=== PATIENT | female | born 2000 | race Caucasian/White ===

== ENCOUNTER 2022-03-17 08:55 | Emergency (ER) | payer OTHER, SELFPAY ==
[2022-03-17 09:02] VITALS: BP 131/79; PULSE 82; RESP 20; TEMP 36.6; O2SAT 100
--- NOTE | 2022-03-17 09:49 | ED.SKABFB ---
HPI - Skin/Abscess/Foreign Bdy General Chief complaint: Skin/Abscess/Foreign Body Stated complaint: Warm and Itchy rash on breast Time Seen by Provider: 03/17/22 09:15 Source: patient, RN notes reviewed and old records reviewed Mode of arrival: ambulatory Limitations: no limitations History of Present Illness HPI narrative: 22 year old female presents to [facility] with complaints of pain, warmth and pain to her left breast for 2 weeks. Patient reports history of breast cysts in past. Patient just stopped continuous control 2 weeks ago states that she did home test which was negative. Patient states that her nipple has been crusty and she did have one incidence of drainage from her left nipple. Patient reports pain to outer region of left breast with feelings of warmth to the tissue. No palpable masses noted. MD complaint: other (left breast pain) Onset (ago): week(s) (2) Severity scale (1-10): 7 Treatments prior to arrival: other (Ibuprofen) Related Data Home Medications Medication Instructions Recorded Confirmed ubrogepant 50 mg tablet (Ubrelvy) 50 mg PO BID PRN MIGRAINE 03/17/22 03/17/22 Allergies Allergy/AdvReac Type Severity Reaction Status Date / Time No Known Allergies Allergy Verified 03/17/22 09:41 Review of Systems Review of Systems: CONSTITUTIONAL: Denies fever, chills, or sweats. EYES: Denies visual changes, redness, or discharge. ENT: Denies rhinorrhea, congestion, sore throat, or otalgia. CARDIOVASCULAR: Denies chest pain, palpitations, or edema. RESPIRATORY: Denies cough or dyspnea. GASTROINTESTINAL: Denies abdominal pain, nausea, vomiting, or diarrhea. GENITOURINARY: Denies dysuria or hematuria. SKIN: Denies rash or itching.Pain and warmth to lateral left breast for 2 weeks. MUSCULOSKELETAL: Denies back pain, joint pain, or myalgia. NEUROLOGIC: Denies headache, numbness, or weakness. PSYCHIATRIC: Denies anxiety or depression. All systems reviewed & are unremarkable except as noted in HPI and below PMFSH Past Medical History Medical History (Updated 03/21/22 @ 09:16 by Denisse Marshall NP) Cyst, breast Hx of migraines Social History Social History (Updated 03/21/22 @ 09:16 by Denisse Marshall NP) Smoking status: Never smoker Alcohol intake: current Alcohol use details: social Substance use type: does not use Living arrangements: with family Gender identity (if verbalized by the patient): Female Comments At time of signature, agree with nursing past medical, surgical, social and family history. There is no relevant family history pertinent to the presenting complaint Exam Narrative: GENERAL: Well-appearing, well-nourished, and in no acute distress.anxious HEAD: Normocephalic, atraumatic. EYES: PERRLA and EOMI. ENT: Nares clear, no rhinorrhea or epistaxis. Mucous membranes moist.TM's normal throat pink qith no lesions or swelling NECK: Supple.no lymphadenopathy CHEST: Clear to auscultation. No respiratory distress. SAO2 100% on room air HEART: Regular rate and rhythm. No murmur heard. Normal peripheral pulses. ABDOMEN: Soft, nontender, nondistended, normal active bowel sounds. EXTREMITIES: Normal range of motion. No edema. SKIN: Warm, dry, no rash. tenderness to left lateral breast on palpation, no palpable masses noted, no drainage noted from nipple,minimal warmth to tissue of left breast,patient is afebrile NEURO: No focal deficits. Alert and oriented x3. Course Course Level of Care: Express Care Visit Vital Signs Vital signs: Vital Signs Temperature 36.6 C 03/17/22 09:02 Pulse Rate 82 03/17/22 09:02 Respiratory Rate 20 03/17/22 09:02 Blood Pressure 131/79 03/17/22 09:02 Pulse Oximetry 100 03/17/22 09:02 Oxygen Delivery Room Air 03/17/22 09:02 Temperature 36.6 C 03/17/22 09:02 Pulse Rate 82 03/17/22 09:02 Respiratory Rate 20 03/17/22 09:02 Blood Pressure 131/79 03/17/22 09:02 Pulse Oximetry 100 03/17/22 09:
== END 2022-03-17 10:10 | disposition home or self-care (01) ==
PROVIDERS: Emergency Provider Registered Nurse; PCP Physician Assistant
DX: N64.4 Mastodynia (principal)
CPT/HCPCS: 99203; G0463